=== PATIENT | female | born 1980 | race Caucasian/White ===

== ENCOUNTER 2021-10-03 11:47 | Outpatient (CLI) | payer OTHER ==
[2021-10-03 12:56] LABS: #Basophils 0.1 10x3/uL (0.0-0.2); #Eosinphils 0.1 10x3/uL (0.0-0.5); #Neutrophils 6.9 10x3/uL (1.5-8.4); %Basophils 0.6 % (0.0-2.0); %Lymphocytes 26.5 % (18.0-47.0); %Monocytes 9.4 % (0.0-10.0); %Neutrophils 62.2 % (40.0-75.0); Hemoglobin 12.4 g/dL (12.0-15.5); Mean Corpuscular HGB CONC 32.5 g/dL (32.0-36.0); Mean Corpuscular Hemoglobin 29.7 pg (27.0-33.0); Mean Corpuscular Volume 91.4 fl (81.6-98.3); Mean Platelet Volume 11.2 fl (7.4-10.4); Platelet Count 300 10x3/uL (150-450); RBC Distribution Width 14.3 % (11.5-14.5); Red Blood Cell (RBC) Count 4.17 10x6/uL (3.90-5.03); White Blood Cell (WBC) Count 11.1 10x3/uL (3.5-10.5)
[2021-10-03 13:11] LABS: BHCG - Serum Negative (NEGATIVE); Pregs Control Background? CLEAR/WHITE (CLR/WHITE); Pregs Control Bar Appear? YES (CONTROL BAR)
[2021-10-03 13:12] LABS: ALT (SGPT) 17 U/L (8-55); AST (SGOT) 23 U/L (5-34); Albumin 4.5 g/dL (3.5-5.0); Alkaline Phosphatase 47 U/L (40-110); Anion Gap 13 mmol/L (10-20); BUN (Urea Nitrogen) 17 mg/dL (7.0-18.7); Calc. Creatinine Clearance 0 mL/min (70-130); Calcium 9.2 mg/dL (7.8-10.44); Carbon Dioxide 23 mmol/L (22-29); Chloride 107 mmol/L (98-107); Globulin 2.8 g/dL (2.4-3.5); Glucose 85 mg/dL (70-105); Potassium 4.5 mmol/L (3.5-5.1); Protein, Total 7.3 g/dL (6.0-8.3); Sodium 138 mmol/L (136-145)
[2021-10-03 18:02] LABS: Hemoglobin A1c 4.9 % (4.0-6.0)
[2021-10-04 11:22] LABS: SARS-CoV-2 PCR by NAA Not Detected (NotDetected)
== END 2021-10-03 11:48 | disposition home or self-care (01) ==
LOC: LABBT 11:47
PROVIDERS: ATTEND Surgery
DX: Z01.818 Encounter for other preprocedural examination (principal); Z20.822 Contact with and (suspected) exposure to COVID-19
CPT/HCPCS: 71046; 80053; 83036; 84703; 85025; 93005; 93010; U0003; U0005

== ENCOUNTER 2021-10-03 12:00 | Inpatient (IN) | payer OTHER ==
[2021-10-08] MEDS ORDERED: ceFAZolin 2 GM/DEX 5% 100 ML BAG ONE (08:05)
[2021-10-08] MEDS ORDERED: Bupivacaine 0.25% 10 ML VIAL ONE (09:08)
[2021-10-08] MEDS ORDERED: Lidocaine 1% w/Epinephrine 1:100K 30 ML VIAL ONE (09:08)
[2021-10-08] MEDS ORDERED: Fentanyl 100 MCG/2 ML VIAL ONE ×2 (09:36→11:52)
[2021-10-08] MEDS ORDERED: Rocuronium Bromide 10 MG/ML (10ML VIAL) ONE (09:38)
[2021-10-08] MEDS ORDERED: Dexamethasone 20 MG/5 ML VIAL ONE (09:38)
[2021-10-08] MEDS ORDERED: Ondansetron PF 4 MG/2 ML Vial ONE (09:38)
[2021-10-08] MEDS ORDERED: PROPOFOL 200 MG/20 ML VIAL ONE (09:38)
[2021-10-08] MEDS ORDERED: Ketorolac Tromethamine 30 MG/ML VIAL ONE (09:38)
[2021-10-08] MEDS ORDERED: Promethazine HCl 25 MG/ML VIAL IM PRN ×3 (11:23→13:22)
[2021-10-08] MEDS ORDERED: diphenhydrAMINE 25 MG CAP PO PRN (11:23)
[2021-10-08] MEDS ORDERED: Ondansetron PF 4 MG/2 ML Vial IVP PRN ×2 (11:23→13:22)
[2021-10-08] MEDS ORDERED: fentaNYL Citrate/PF 2,000 MCG in Sodium Chloride 0.9% 60 ML IV PRN (11:23)
[2021-10-08] MEDS ORDERED: Naloxone HCl 0.4 mg/ml Vial IV PRN (11:23)
[2021-10-08] MEDS ORDERED: Promethazine HCl 25 MG/ML VIAL IVPB PRN (11:23)
[2021-10-08] MEDS ORDERED: diphenhydrAMINE 50 MG/ML VIAL IM PRN (11:23)
[2021-10-08] MEDS ORDERED: Ondansetron HCl/PF 4 MG/2 ML Vial IVP PRN (11:23)
[2021-10-08] MEDS ORDERED: Zolpidem Tartrate 5 MG TAB PO PRN (11:23)
[2021-10-08] MEDS ORDERED: diphenhydrAMINE 50 MG/ML VIAL IVP PRN ×2 (11:23→13:22)
[2021-10-08] MEDS ORDERED: hydrALAZINE 20 MG/ML VIAL ONE (11:23)
[2021-10-08] MEDS ORDERED: Communication Order-Pharmacy FS SCH (11:30)
[2021-10-08] MEDS ORDERED: D5 1/2 NS w/20 mEq KCL 1,000 ML ONE (12:16)
[2021-10-08] MEDS ORDERED: Dextrose 50% Abboject 50 ML SYRINGE SLOW IVP PRN (13:22)
[2021-10-08] MEDS ORDERED: Hydrocodone-Acetamin 15 ML UDCUP PO PRN (13:22)
[2021-10-08] MEDS ORDERED: hydrALAZINE 20 MG/ML VIAL SLOW IVP PRN (13:22)
[2021-10-08] MEDS ORDERED: Dextrose 5% in Water 1,000 ML IV PRN (13:22)
[2021-10-08 14:01] VITALS: BMI 38.2
[2021-10-08] MEDS: D5 1/2 NS w/20 mEq KCL 1,000 ML IV SCH ×2 (14:24→20:44)
[2021-10-08] MEDS: Metoprolol Tartrate 25 MG TAB PO SCH (20:42)
[2021-10-09 05:31] LABS: %Basophils 0.1 % (0.0-1.0); %Eosinophils 0.1 % (0.0-10.0); %Lymphocytes 7.7 % (21.0-51.0); %Monocytes 7.4 % (0.0-10.0); %Neutrophils 84.8 % (42.0-75.0); Hemoglobin 10.7 g/dL (12.0-16.0); Mean Corpuscular HGB CONC 33.7 g/dL (32.0-36.0); Mean Corpuscular Hemoglobin 31.6 pg (27.0-31.0); Mean Corpuscular Volume 93.7 fL (78.0-98.0); Mean Platelet Volume 8.2 fL (7.4-10.4); Platelet Count 211 thou/uL (130-400); RBC Distribution Width 12.8 % (11.5-14.5); Red Blood Cell (RBC) Count 3.37 mill/uL (4.20-5.40)
[2021-10-09 05:50] LABS: Anion Gap 7 mmol/L (10-20); BUN (Urea Nitrogen) 4 mg/dL (7.0-18.7); Calc. Creatinine Clearance 168 mL/min (70-130); Calcium 8.5 mg/dL (7.8-10.44); Carbon Dioxide 23 mmol/L (22-29); Chloride 111 mmol/L (98-107); Glucose 112 mg/dL (70-105); Potassium 4.1 mmol/L (3.5-5.1); Sodium 137 mmol/L (136-145)
[2021-10-09] MEDS: D5 1/2 NS w/20 mEq KCL 1,000 ML IV SCH ×2 (05:56→12:29)
[2021-10-09] MEDS: Hydrocodone-Acetamin 15 ML UDCUP PO PRN ×2 (07:43→11:53)
[2021-10-09 08:21] VITALS: TEMP 98
[2021-10-09] MEDS: Metoprolol Tartrate 25 MG TAB PO SCH (08:48)
[2021-10-09] MEDS ORDERED: Losartan 25 MG TAB PO SCH (09:00)
[2021-10-09] MEDS ORDERED: busPIRone HCl 10 MG TAB PO SCH (09:00)
[2021-10-09] MEDS ORDERED: Bupropion 150 MG SR TAB PO SCH (09:00)
[2021-10-09] MEDS ORDERED: Enoxaparin Sodium 40 MG/0.4 ML SYRINGE SC SCH (09:00)
[2021-10-09] MEDS ORDERED: Pantoprazole 40 MG VIAL IVP SCH (09:00)
[2021-10-09 12:24] VITALS: BP 118/77
== END 2021-10-09 14:50 | disposition home or self-care (01) | DRG 621 ==
LOC: SURG A 10-08 07:33 → EDSTATUS 10-08 12:00 → SURG A 10-08 12:45
PROVIDERS: ADMIT Surgery; ATTEND Surgery
PROC: 0DB64Z3 Excision of Stomach, Percutaneous Endoscopic Approach, Vertical (ICD-10-PCS; principal; 2021-10-08)
PROC: 0BQT4ZZ Repair Diaphragm, Percutaneous Endoscopic Approach (ICD-10-PCS; 2021-10-08)
PROC: 8E0W4CZ Robotic Assisted Procedure of Trunk Region, Percutaneous Endoscopic Approach (ICD-10-PCS; 2021-10-08)
DX: E66.01 Morbid (severe) obesity due to excess calories (principal); Z20.822 Contact with and (suspected) exposure to COVID-19; K46.9 Unspecified abdominal hernia without obstruction or gangrene; I10 Essential (primary) hypertension; G47.33 Obstructive sleep apnea (adult) (pediatric); F41.9 Anxiety disorder, unspecified; F32.A Depression, unspecified; F43.10 Post-traumatic stress disorder, unspecified; Z88.0 Allergy status to penicillin; Z99.89 Dependence on other enabling machines and devices; Z90.49 Acquired absence of other specified parts of digestive tract; Z79.899 Other long term (current) drug therapy; Z68.41 Body mass index [BMI] 40.0-44.9, adult
CPT/HCPCS: 36415; 80048; 85025; 88307; 94640; 94760; C1713; C9113; J0360; J1100; J1650; J1885; J2405; J2704; J3010; J3480; J7620; S0020